=== PATIENT | female | born 1990 | race Caucasian/White ===

== ENCOUNTER 2018-12-03 13:16 | Emergency (ER) | payer MEDICAID ==
[~2018-12-03] VITALS: Ht 154.9 cm; Wt 66.2 kg
[2018-12-03 13:38] VITALS: Ht 154.9 cm; Wt 66.2 kg
[2018-12-03 15:03] LABS: CALCIUM 9.2 mg/dL (8.5-10.1); CARBON DIOXIDE 27.4 mmol/L (21-32); CHLORIDE SERUM 100 mmol/L (98-107); CREATININE SERUM 0.8 mg/dL (0.6-1.0); GFR1 > 60 mL/min; GLUCOSE SERUM 89 mg/dL (74-106); POTASSIUM SERUM 3.6 mmol/L (3.5-5.1); SODIUM SERUM 137 mmol/L (136-145)
[2018-12-03 15:05] LABS: BASOPHIL % 0.3 % (0-2); PLATELET COUNT 356 x10^3mcL (130-400); RED CELL DISTRIBUTION WIDTH 13.3 % (11.5-14.5)
[2018-12-03 15:07] LABS: ALBUMIN 3.8 g/dL (3.4-5.0); ALKALINE PHOSPHATASE 72 U/L (46-116); ALT/SGPT 19 U/L (14-59); AST/SGOT 18 U/L (15-37); BILIRUBIN TOTAL 0.3 mg/dL (0.20-1.00); LIPASE 71 IU/L (73-393)
[2018-12-03 15:08] LABS: TOTAL PROTEIN, SERUM 8.6 g/dL (6.4-8.2)
[2018-12-03 15:27] LABS: UA SPECIFIC GRAVITY >=1.030 (1.005-1.035); microscopic required? YES; urine erythrocyte NEGATIVE (NEGATIVE)
[2018-12-03 17:11] VITALS: BP 116/84
== END 2018-12-03 17:11 | disposition home or self-care (01) ==
LOC: ED 13:16
PROVIDERS: Emergency Medicine
DX: N39.0 Urinary tract infection, site not specified (principal)
CPT/HCPCS: J0696; J1885; J2405; J7030; Q0092